=== PATIENT | female | born 1990 | race Caucasian/White ===

== ENCOUNTER → 2017-08-01 10:44 | Outpatient (REF) | payer OTHER, SELFPAY ==
[2017-08-01 13:44] LABS: Basophils # 0.1 K/mm3 (0-0.2); Basophils % 0.7 % (0.1-2.0); Eosinophils # 0.1 K/mm3 (0.0-0.4); Eosinophils % 1.7 % (0.1-12.0); Hemoglobin 13.1 g/dL (12.2-16.2); Lymphocytes # 2.9 K/mm3 (0.7-4.5); Lymphocytes % 36.7 K/mm3 (10-50); Mean Corpuscular HGB Conc 32.6 g/dL (31.8-35.4); Mean Corpuscular Hemoglobin 31.1 pg (27.0-31.2); Mean Corpuscular Volume 95.4 fl (81-99); Mean Platelet Volume 9.2 fl (7.4-10.4); Monocytes # 0.4 K/mm3 (0.1-1.0); Monocytes % 4.9 % (1.7-9.3); Neutrophils # 4.5 K/mm3 (1.8-7.8); Neutrophils % 55.9 % (37.0-80.0); Platelet Count 247 K/mm3 (142-424); Red Cell Distribution Width 12.6 % (11.5-17.5)
[2017-08-01 14:01] LABS: Free T4 (Free Thyroxine) 0.96 ng/dl (0.76-1.46); Thyroid Stimulating Hormone 1.52 uIU/ml (0.358-3.740)
[2017-08-01 14:05] LABS: Amphetamine/Metha Screen,Urine Negative ng/mL (<1000); Barbiturates Screen,Urine Negative ng/mL (<200); Benzodiazepines Screen,Urine Negative ng/mL (200); Cannabinoid Screen,Urine Negative ng/mL (<50); Cocaine Screen,Urine Negative ng/g (<300); Methadone Screen,Urine Negative ng/mL (<300); Opiate Screen,Urine Negative ng/mL (<300); Phencyclidine Screen,Urine Negative ng/mL (<25)
[2017-08-01 14:50] LABS: Erythrocyte Sedimentation Rate 7 mm/hr (0-20)
[2017-08-03 06:28] LABS: Prolactin 10.1 ng/mL (4.8-23.3); Vitamin D 25 Hydroxy 53.2 ng/mL (30.0-100.0)
== END ==
LOC: LAB 10:44
PROVIDERS: Visit Provider Emergency Medicine
DX: R53.83 Other fatigue (principal); Z79.899 Other long term (current) drug therapy
CPT/HCPCS: 80305; 82652; 84146; 84439; 84443; 85025; 85651

== ENCOUNTER → 2017-09-11 13:16 | Outpatient (CLI) | payer OTHER, SELFPAY ==
--- NOTE | 2017-09-11 13:19 | US_ITS ---
US breast RT complete COMPARISON: Ultrasound left breast same date HISTORY: Bilateral breast pain, galactorrhea TECHNIQUE: Ultrasound scanning all 4 quadrants FINDINGS: There is diffuse heterogenic echogenicity throughout the breast consistent with prominent fibrocystic change. There is a focal scar 10:00 position near the nipple right breast at the site of previous biopsy right or excision. There are normal-appearing nodes in the axilla. IMPRESSION: Diffuse heterogenic echogenicity consistent with prominent fibrocystic changes not unusual for this age, there is no suspicious cystic or solid mass
--- NOTE | 2017-09-11 13:19 | MM_ITS ---
MM Dig mamm BI DX w/CAD COMPARISON: None, this is baseline INDICATION: Patient was adopted Does not know family history patient complaining of lumps in both breasts TECHNIQUE: Standard MLO and CC views were obtained along with exaggerated cc views. FINDINGS: There is a markedly dense and heterogenic parenchymal pattern lessening the sensitivity of mammography. The findings are fairly symmetrical bilaterally. There is no suspicious lesion and there are no suspicious microcalcifications. IMPRESSION: Dense and heterogenic parenchymal pattern with no suspicious lesion seen recommend yearly screening mammography at the age of 33 BI-RADS Category: 1 Negative RECOMMENDED FOLLOW-UP: 1YR - 1 YEAR FOLLOW-UP beginning at the age of 33 (A letter has been sent to the patient regarding results of the study.)
--- NOTE | 2017-09-11 13:19 | US_ITS ---
US breast LT complete COMPARISON: Ultrasound right breast same date HISTORY: Lateral breast pain and galactorrhea TECHNIQUE: Ultrasound all 4 quadrants FINDINGS: There is diffuse heterogenic echogenicity throughout the breast consistent with prominent fibrocystic change. There is no abnormal cystic or solid mass and there is no definite ductal hyperplasia. There are normal-appearing nodes in the axilla. IMPRESSION: Prominent heterogenic echogenicity consistent with fibrocystic change, no suspicious cystic or solid lesions seen
== END ==
PROVIDERS: PCP Emergency Medicine; Visit Provider Physician Assistant
DX: N64.4 Mastodynia (principal); N64.3 Galactorrhea not associated with childbirth; N63.0 Unspecified lump in unspecified breast
CPT/HCPCS: 76641; 77066

== ENCOUNTER → 2018-01-01 08:32 | Outpatient (CLI) | payer OTHER, SELFPAY ==
--- NOTE | 2018-01-01 08:36 | MR_ITS ---
MR abdomen wo/w con INDICATION: Right lower quadrant pain, constant right lower quadrant pain. Burning sensation during menstruation, tenderness in the right lower quadrant. Abnormal CT scan of 06/25/2018 showing enhancement of the right rectus abdominis muscle inferiorly. ITS.REASON: attention rectus abdominis ORDERING PHYSICIAN: JOSEPH Horner PATIENT AGE: 27 years COMPARISON: 06/25/2018 TECHNIQUE: Routine multiplanar multiecho sequences were performed without and with contrast FINDINGS: The liver, gallbladder, spleen, kidneys, and adrenal glands have an unremarkable appearance. No pancreatic mass or ductal dilatation is evident. The visualized portion of the anterior abdominal wall/rectus abdominis muscle has an unremarkable appearance. The exam however did not include the pelvis. The lower aspect of the rectus abdominis muscle was the area of interest on the CT scan of 06/25/2017 and is not covered by this exam. One would need to perform an MRI of the pelvis to include this region. The [id number] cannot be widened to include the abdomen and the pelvic region and maintain image quality.. IMPRESSION: 1. Negative MRI of the abdomen. 2. The area of interest on the CT scan of the right rectus abdominis is at least 8 cm below the level of the umbilicus and is not included on the MRI of the abdomen.
== END ==
PROVIDERS: PCP Physician Assistant; Visit Provider Physician Assistant
DX: R10.31 Right lower quadrant pain (principal); R10.9 Unspecified abdominal pain
CPT/HCPCS: 74183; A9576

== ENCOUNTER → 2018-01-05 14:07 | Outpatient (CLI) | payer OTHER, SELFPAY ==
--- NOTE | 2018-01-05 14:10 | US_ITS ---
US transvaginal HISTORY: Right lower quadrant pain ITS.REASON: rlq pain ORDERING PHYSICIAN: JOSEPH Horner PATIENT AGE: 27 years Comparison: None Last menstrual period 12/11/2017 FINDINGS: The uterus is bulky and 10 x 4.5 x 5.7 cm. Combined endometrial thickness is 9 mm. No uterine mass is evident. The left ovary is 3.9 x 2.8 cm and contains small follicles as well as probable collapsed cyst at 12 mm. The right ovary is 4.7 x 3.5 cm containing follicles and a 2.5 follicular cyst. Cul-de-sac fluid is not identified. There is bilateral ovarian blood flow. IMPRESSION: 1. Bulky uterus. 2. 2.5 cm right ovarian cyst. Possible partially collapsed left ovarian cyst
== END ==
PROVIDERS: PCP Physician Assistant; Visit Provider Physician Assistant
DX: N92.1 Excessive and frequent menstruation with irregular cycle (principal); R10.2 Pelvic and perineal pain; R10.31 Right lower quadrant pain
CPT/HCPCS: 76830

== ENCOUNTER → 2018-01-10 10:40 | Outpatient (CLI) | payer OTHER, SELFPAY ==
--- NOTE | 2018-01-10 10:43 | MR_ITS ---
MR pelvis wo/w con HISTORY: Right lower quadrant pain, abdominal wall mass of the right rectus abdominis ITS.REASON: right rectus abdominous musculature ORDERING PHYSICIAN: JOSEPH Horner PATIENT AGE: 27 years Comparison: 06/25/2018 TECHNIQUE: Standard multiplanar multiecho sequences are performed without and with gadolinium enhancement. FINDINGS: There is an oval area of decreased T1 signal intensity involving the anterior aspect of the right rectus abdominis muscle measuring 2.5 x 1.4 x 2.7 cm. This shows some slight heterogeneous increased T2 signal. This is nonspecific CT and could represent an area of endometriosis or other tumor or tumor-like conditions and does not appear significantly changed.. This is nearly 10 cm below the umbilicus and toward the right. Does the patient has a section scar in this region? Incidental note is made of a 2.5 x 2 cm right ovarian cyst. Multiple small left ovarian follicles are present. IMPRESSION: 1. Ill-defined heterogeneous signal intensity of the right rectus abdominis slightly hypointense on T1, slightly hyperintense on T2 without significant contrast enhancement. This is nonspecific. Scar endometriosis is a consideration. Please correlate with clinical findings. This does not appear significantly changed from 06/25/2017. Other tumor or tumor-like conditions not excluded. 2. 2 cm right ovarian cyst IMPRESSION:
--- NOTE | 2018-01-10 12:00 | HMH.ITSHM ---
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 []LEXAPRO CLONAZEPAM IRON
== END ==
PROVIDERS: PCP Physician Assistant; Visit Provider Physician Assistant
DX: R10.31 Right lower quadrant pain (principal); R10.2 Pelvic and perineal pain; N92.1 Excessive and frequent menstruation with irregular cycle
CPT/HCPCS: 72197; A9576

== ENCOUNTER 2023-07-12 16:14 | Emergency (ER) | payer OTHER, SELFPAY ==
[2023-07-12 16:15] VITALS: BP 135/89; PULSE 70; RESP 18; TEMP 36.6; O2SAT 99; BMI 20.8
[2023-07-12 16:30] VITALS: BP 121/91; PULSE 73; O2SAT 96
--- NOTE | 2023-07-12 16:36 | CT_ITS ---
PROCEDURE INFORMATION: Exam: CT Abdomen And Pelvis With Contrast Exam date and time: 07/12/2023 5:03 PM Age: 32 years old Clinical indication: Abdominal pain; Prior surgery; Surgery date: 6+ months; Surgery type: Tubal; Additional info: Severe lower abd pain, reports h/o hernia + cancer TECHNIQUE: Imaging protocol: Computed tomography of the abdomen and pelvis with contrast. Radiation optimization: All CT scans at this facility use at least one of these dose optimization techniques: automated exposure control; mA and/or kV adjustment per patient size (includes targeted exams where dose is matched to clinical indication); or iterative reconstruction. Contrast material: ISOVUE; Contrast volume: 70 ml; Contrast route: IV; COMPARISON: 1. PELWW MR pelvis wo/w con 01/10/2018 11:19 AM 2. ABDWW MR abdomen wo/w con 01/01/2018 9:[address] ABD/PELVIS WITH IV CONTRAST 06/25/2017 11:08 PM FINDINGS: Limitations: Evaluation of intra-abdominal contents is limited by a paucity of intraperitoneal fat. Liver: Normal. Gallbladder and bile ducts: No acute process. Pancreas: Normal. Spleen: Normal. Adrenal glands: The adrenal glands appear normal. Kidneys and ureters: There are no soft tissue renal masses or hydronephrosis. Stomach and bowel: There is large volume stool throughout the colon. Appendix: No evidence of appendicitis. Intraperitoneal space: Unremarkable. Vasculature: The abdominal aorta and its major branches appear normal without evidence of aneurysm or stenosis. There are pelvic phleboliths. Lymph nodes: No lymphadenopathy. Urinary bladder: Unremarkable as visualized. Reproductive: There is a tampon in the vagina. 2.3 cm right adnexal cyst, possibly dominant follicle. Bones/joints: The visualized osseous structures of the abdomen and pelvis appear normal for patient age. Soft tissues: Unremarkable. IMPRESSION: 1. No acute inflammatory or obstructive process is identified. Incidental findings are described within the findings section. 2. Somewhat atypical position of tampon, correlate for retention.
--- NOTE | 2023-07-12 16:39 | ED_ITS ---
Discharge Plan Disposition Patient Disposition: Home, Self-Care Condition: Good Prescriptions Prescriptions: New ketorolac 10 mg tablet 10 mg PO Q8H PRN (Reason: pain) 1 Days Qty: 20 0RF methocarbamol 750 mg tablet 750 mg PO Q8H PRN (Reason: pain) Qty: 20 0RF lidocaine [Lidoderm] 5 % adhesive patch,medicated 1 patch topical DAILY Qty: 15 0RF Rx Instructions: leave on most painful area for up to 12 hrs No Action vitamin E (dl, acetate) 1,000 unit capsule 1,000 unit PO DAILY Qty: 90 0RF triazolam 0.125 mg tablet 0.125 mg PO ONCE Qty: 1 0RF Rx Instructions: Take 30 minutes prior to procedure escitalopram oxalate [Lexapro] 10 mg tablet 10 mg PO DAILY Qty: 30 2RF clonazepam 1 mg tablet 1 mg PO BID Qty: 60 2RF Referrals Follow up/Referrals: Rosangela Young DO [Staff Physician] - See instructions Nancy Sharp PA [Primary Care Provider] - See instructions Activity Restrictions/Add. Instructions Additional Instructions/Restrictions: You were evaluated in the emergency department today. At this time, I feel that your symptoms are likely related to muscle strain of your abdomen. 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 Robaxin is a muscle relaxer and Toradol as an anti-inflammatory. You may also take Tylenol in addition to these medications every 4-6 hours as needed for pain. I also sent in a prescription for lidocaine patches. Follow-up closely with your primary care provider as well as with [facility] given your ovarian cyst. Return to the emergency department for new or worsening symptoms. Clinical Impressions Clinical Impression: Abdominal muscle strain, Cyst of right ovary Instructions Patient Instructions: DI for Acute Abdominal Pain Discharge ED Provider: Fawn Moore General Adult HPI General Chief complaint: Abdominal Pain Stated complaint: abd , groin pain,, poss hernia Time Seen by Provider: 07/12/23 16:22 Mode of Arrival: Ambulatory Source of Information: Patient Limitations: No Limitations Description of Symptoms (Recalled from ER Triage Doc. by RN): Patient reports right lower quadarant abdominal pain that started yesterday after lifting some pipes. States she has a know hernia in that area and she feels like it is going to pop out. States that the pain radiates into her vagina. History of Present Illness HPI narrative: This patient is a 32-year-old female who reports a history of multiple C- sections, tubal ligation, breast mass and menorrhagia presenting to the emergency department for evaluation with concern for severe right lower quadrant abdominal pain that started yesterday after lifting some very heavy pipes. She was fine prior to heavy lifting. She still having bowel movements, passing gas, and urinating normally, but the pain is severe and nothing seems to make it better or worse. She has tried multiple medications at home prior to arrival. She states she notes that she has a hernia down there. She is currently on her period. Related Data Previous Rx's Medication Instructions Recorded vitamin E (dl, acetate) 450 mg 1,000 unit PO DAILY #90 caps 09/14/17 (1,000 unit) capsule clonazepam 1 mg tablet 1 mg PO BID #60 tabs 12/19/17 escitalopram oxalate 10 mg tablet 10 mg PO DAILY #30 tabs 12/19/17 (Lexapro) triazolam 0.125 mg tablet 0.125 mg PO ONCE #1 tab 01/09/18 ketorolac 10 mg tablet 10 mg PO Q8H PRN pain 1 day #20 07/12/23 tabs lidocaine 5 % topical patch 1 patch topical DAILY #15 ea 07/12/23 (Lidoderm) methocarbamol 750 mg tablet 750 mg PO Q8H PRN pain #20 tabs 07/12/23 Allergies Allergy/AdvReac Type Severity Reaction Status Date / Time aripiprazole [From Abilify] Allergy Severe Anaphylaxis Verified 12/19/17 13:09 hydroxyzine Allergy Intermediate Anaphylaxis Verified 12/19/17 13:[address] [facility] Disclaimer: The information contained in this section may have been updated after the patient was seen, as this information can be updated by other users. Medical History Chronic pain of breast Depression Breast pain Sciatica Right lower quadrant pain Menometrorrhagia Pelvic pain Breast mass in female Galactorrhea Anxiety Social History Smoking Status: Unknown if ever smoked alcohol intake: current alcohol intake frequency: holidays/special occasions only substance use type: marijuana current occupational status: unemployed Travel in the last 8 weeks: None household members: family housing: house ROS Obtained: Yes All systems reviewed & no additional complaints except as documented Physical Exam General General appearance: alert Comment: Uncomfortable appearing Head Head exam: atraumatic and normocephalic Eye Eye exam: Present normal appearance, PERRL and EOMI ENT ENT exam: Present normal exam, normal oropharynx, mucous membranes moist and normal external ear exam Neck Neck exam: Present normal inspection, full ROM and trachea midline; Absent tenderness Chest Chest inspection: Present normal inspection and symmetric chest wall rise; Absent tenderness Respiratory Respiratory exam: Present normal lung sounds bilaterally; Absent respiratory distress, wheezes, stridor or accessory muscle use Cardiovascular Cardiovascular exam: Present regular rate and normal rhythm Abdominal Exam Abdominal exam: Present tenderness (Generalized, worse in the lower abdomen) and guarding; Absent distention, rebound or rigidity Comment: Pain out of proportion to exam Extremities Exam Extremities exam: Present normal inspection, full ROM and normal capillary refill; Absent tenderness or edema Back Exam Back exam: Present normal inspection and full ROM; Absent tenderness Neurological Exam Neurological exam: Present alert, oriented X3, CN II-XII intact and normal gait; Absent motor sensory deficit Psychiatric Psychiatric exam: Present normal affect and normal mood Skin Skin exam: Present warm and dry Medical Decision Making Medical Records Medical records reviewed: Yes I reviewed the patient's medical records. Adriel Inquiry Pt receiving controlled substance: No Vital Signs: 07/12/23 16:15 07/12/23 16:30 07/12/23 19:00 Temperature 97.9 F Temperature Source Oral Pulse Rate 73 63 Pulse Rate [Radial] 70 Respiratory Rate 18 Blood Pressure 121/91 H Blood Pressure [Right Arm] 135/89 Blood Pressure Mean Blood Pressure Mean [Right Arm] 104 Blood Pressure Source Blood Pressure Source [Right Arm] Automatic Cuff Blood Pressure Position Blood Pressure Position [Right Arm] Sitting 02 Sat by Pulse Oximetry 99 96 95 Oxygen Delivery Method Room Air Room Air 07/12/23 19:30 07/12/23 20:00 07/12/23 20:35 Temperature 98.0 F Temperature Source Oral Pulse Rate 59 L 55 L 75 Pulse Rate [Radial] Respiratory Rate 19 Blood Pressure 152/96 H 152/90 H Blood Pressure [Right Arm] Blood Pressure Mean 104 Blood Pressure Mean [Right Arm] Blood Pressure Source Automatic Cuff Blood Pressure Source [Right Arm] Blood Pressure Position Sitting Blood Pressure Position [Right Arm] 02 Sat by Pulse Oximetry 97 95 Oxygen Delivery Method Room Air Lab Data Lab results reviewed: Yes I reviewed the patient's lab results. Lab Results 07/12/23 16:44: WBC 13.5 H, RBC 4.10 L, Hgb 13.8, Hct 42.4, MCV 103.5 H, MCH 33.7 H, MCHC 32.6, RDW 13.3, Plt Count 256, MPV 8.9, Neut % (Auto) 68.0, Lymph % (Auto) 24.8, [place] % (Auto) 4.6, Eos % (Auto) 1.6, Baso % (Auto) 1.0, Neut # (Auto) 9.2 H, Lymph # (Auto) 3.3, [place] # (Auto) 0.6, Eos # (Auto) 0.2, Baso # (Auto) 0.1, Sodium 139, Potassium 3.8, Chloride 104, Carbon Dioxide 28, Anion Gap 10.8, BUN 10, Creatinine 0.60, Estimated Creat Clear 88, Estimated GFR 114, Est GFR ( Amer) 138, Glucose 97, Lactate 1.2, Calcium 9.6, Total Bilirubin 0.2, AST 24, ALT 20, Alkaline Phosphatase 33 L, Total Protein 7.1, Albumin 4.5, Globulin 2.6, Albumin/Globulin Ratio 1.7, Lipase 48 07/12/23 17:53: Urine Color Yellow, Urine Appearance Clear, Urine pH 5.5, Ur Specific [place] 1.020, Urine Protein Negative, Urine Glucose (UA) Negative, Urine Ketones Negative, Urine Blood Negative, Urine Nitrate Negative, Urine Bilirubin Negative, Urine Urobilinogen 0.2, Ur Leukocyte Esterase Negative, Urine RBC Occasional, Urine WBC Occasional, Ur Squamous Epith Cells Occasional, Urine Bacteria 2+ 07/12/23 16:44 07/12/23 16:44 Orders (Tests/Meds): ED MEDICATIONS Discontinued Medications Generic Name Dose Route Start Last Admin Trade Name Thienq PRN Reason Stop Dose Admin Acetaminophen 1,000 mg 07/12/23 16:37 07/12/23 16:56 Acetaminophen 1,000mg/100ml Vial IV 07/12/23 16:38 1,000 mg ONCE ONE Administration Diazepam 5 mg 07/12/23 19:15 07/12/23 19:23 Diazepam 5mg Tablet PO 07/12/23 19:16 5 mg ONCE ONE Administration Hydromorphone HCl 0.5 mg 07/12/23 17:38 07/12/23 17:50 Hydromorphone 2mg/Ml Syringe IV 07/12/23 17:39 0.5 mg ONCE ONE Administration Lactated Ringer's 1,000 mls @ 999 mls/hr 07/12/23 16:37 07/12/23 16:56 Lactated Ringer's 1000 Ml Bag IV 07/12/23 17:37 999 mls/hr .Q1H1M ONE Administration Iopamidol 70 ml 07/12/23 17:11 07/12/23 17:11 Iopamidol-370 (76%);100ml Bottle IV 07/12/23 17:12 70 ml ONCE ONE Administration Ketorolac Tromethamine 15 mg 07/12/23 16:37 07/12/23 16:56 Ketorolac 30mg/Ml Vial IV 07/12/23 16:38 15 mg ONCE ONE Administration Lidocaine 1 each 07/12/23 19:15 07/12/23 19:23 Lidocaine 5% Transdermal Patch TP 07/12/23 19:16 1 each ONCE ONE Administration Metoclopramide HCl 5 mg 07/12/23 17:42 07/12/23 17:49 Metoclopramide Hcl 10mg/2ml Vial IVP 07/12/23 17:43 5 mg ONCE ONE Administration Morphine Sulfate 4 mg 07/12/23 16:37 07/12/23 16:56 Morphine 4mg/Ml Syringe IV 07/12/23 16:38 4 mg ONCE ONE Administration Ondansetron HCl 4 mg 07/12/23 16:37 07/12/23 16:56 Ondansetron 4mg/2ml Vial IV 07/12/23 16:38 4 mg ONCE ONE Administration Sodium Chloride 10 ml 07/12/23 17:11 07/12/23 17:11 Sodium Chloride 0.9% 10ml Syr (Rad Only) IV 07/12/23 17:12 10 ml ONCE ONE Administration ORDERS Category Date Time Status CT abdomen pelvis w con Stat Cat Scan 07/12/23 16:36 Completed US transvaginal Stat Exams 07/12/23 17:38 Completed CBC w/Auto Diff [Complete Blood Count Auto Diff] Stat Lab 07/12/23 16:44 Completed CMP [Comprehensive Metabolic Panel] Stat Lab 07/12/23 16:44 Completed Lactic Acid Stat Lab 07/12/23 16:44 Completed Lipase Stat Lab 07/12/23 16:44 Completed UA [Urinalysis and Microscopic] Stat Lab 07/12/23 17:53 Completed Urine Culture Stat Micro 07/12/23 17:53 Received Medical Decision Narrative: In summary, this patient is a 32-year-old female presenting to the Emergency Department for evaluation of severe abdominal pain. Differential diagnoses considered include but are not limited to musculoskeletal strain/sprain, incarcerated hernia, strangulated hernia, colitis, cystitis, ovarian cyst, ovarian torsion, appendicitis. Ruling out the most morbid conditions drove assessment. On exam, the patient is uncomfortable appearing with generalized abdominal tenderness. Pain is out of proportion to exam. Workup included CBC, CMP, lipase, lactic acid, urinalysis, and CT abdomen pelvis with IV contrast. She is given a bolus of IV fluids as well as IV Toradol, acetaminophen, Zofran, and morphine for symptomatic improvement. I independently interpreted CT scan prior to the radiologist read and noted right ovarian cyst without other acutely concerning abnormalities. Please see their read for final interpretation. Labs were obtained that demonstrated mild leukocytosis without other acutely concerning abnormalities. On reassessment, patient had minimal improvement after administration of medications above. She was given IV Dilaudid with continued minimal improvement. Given ovarian cyst, transvaginal ultrasound was ordered to assess for flow to rule out torsion. I independently interpreted this prior to radiology read and noted that she had the right ovarian cyst with good blood flow to right ovary not concerning for torsion. On exam, she clearly begins to state that this is much worse with movement and changing the positions, and it goes from her back to her right lower pelvis. I feel this is likely musculoskeletal strain/sprain. She was given oral Valium and a topical Lidoderm patch, which did significantly improve her pain and she is feeling much better. At this time, patient was deemed to be appropriate for discharge home with instructions for supportive management, close gynecology follow-up, and very strict return precautions. She was given prescriptions for Robaxin, Lidoderm patch, and Toradol. She was discharged after all questions were answered. Critical Care Critical Care Time Critical Care Time: No
[2023-07-12 16:56] LABS: Basophils # 0.1 K/mm3 (0-0.2); Eosinophils # 0.2 K/mm3 (0.0-0.4); Eosinophils % 1.6 % (0.1-12.0); Hematocrit 42.4 % (37.0-47.0); Hemoglobin 13.8 g/dL (12.2-16.2); Lymphocytes # 3.3 K/mm3 (0.7-4.5); Lymphocytes % 24.8 % (10-50); Mean Corpuscular HGB Conc 32.6 g/dL (31.8-35.4); Mean Corpuscular Hemoglobin 33.7 pg (27.0-31.2); Mean Corpuscular Volume 103.5 fl (81-99); Mean Platelet Volume 8.9 fl (7.4-10.4); Monocytes # 0.6 K/mm3 (0.1-1.0); Monocytes % 4.6 % (1.7-9.3); Neutrophils # 9.2 K/mm3 (1.8-7.8); Platelet Count 256 K/mm3 (142-424); Red Cell Distribution Width 13.3 % (11.5-17.5); White Blood Count 13.5 K/mm3 (4.8-10.8)
[2023-07-12] MEDS: MORPHINE 4MG/ML SYRINGE 4 MG IV (16:56)
[2023-07-12] MEDS: KETOROLAC 30MG/ML VIAL 15 MG IV (16:56)
[2023-07-12] MEDS: LACTATED RINGERS 1000ML 1,000 ML 999 ML IV (16:56)
[2023-07-12] MEDS: ACETAMINOPHEN 1,000MG/100ML VIAL 1000 MG IV (16:56)
[2023-07-12] MEDS: ONDANSETRON 4MG/2ML VIAL 4 MG IV (16:56)
[2023-07-12 17:03] LABS: Chloride 104 mmol/L (98-107); Potassium 3.8 mmoL/L (3.5-5.1); Sodium 139 mmol/L (136-145)
[2023-07-12 17:05] LABS: Alanine Aminotransferase 20 U/L (12-78); Alkaline Phosphatase 33 U/L (38-126); Anion Gap 10.8 mEq/L (5-15); Aspartate Amino Transferase 24 U/L (14-36); Bilirubin,Total 0.2 mg/dl (0.2-1.3); Blood Urea Nitrogen 10 mg/dl (7-17); Carbon Dioxide 28 mmol/L (22.0-30.0); Creatinine Clearance Estimated 88 mL/min (50-200); Estimated Glomerular Filt Rate 114 ml/min (>60); GFR (African American) 138 ML/MIN (>60)
[2023-07-12 17:06] LABS: Albumin Level 4.5 g/dl (3.5-5.0); Albumin/Globulin Ratio 1.7 (1.1-1.8); Calcium 9.6 mg/dl (8.4-10.2); Globulin 2.6 g/dL (1.3-3.2); Glucose 97 mg/dl (74-100); Lipase 48 U/L (23-300); Total Protein,Serum 7.1 g/dl (6.3-8.2)
[2023-07-12 17:07] LABS: Lactic Acid 1.2 mmol/L (0.7-2.1)
[2023-07-12] MEDS: IOPAMIDOL-370 (76%);100ML BOTTLE 70 ML IV (17:11)
[2023-07-12] MEDS: SODIUM CHLORIDE 0.9% 10ML SYR (RAD ONLY) 10 ML IV (17:11)
--- NOTE | 2023-07-12 17:38 | US_ITS ---
PROCEDURE INFORMATION: Exam: US Pelvis, Transvaginal Exam date and time: 07/12/2023 6:02 PM Age: 32 years old Clinical indication: Pelvic pain; Prior surgery; Surgery date: 6+ months; Surgery type: Csecs; Additional info: R ovarian cyst, R pelvic pain LABS AND CLINICAL REPORTS: Last menstrual period start date: 07/07/2023 TECHNIQUE: Imaging protocol: Real-time transvaginal pelvic ultrasound with image documentation. Transvaginal imaging was used for better evaluation of the endometrium, adnexa, and/or cervix. COMPARISON: CT ABDOMEN PELVIS W CON 07/12/2023 5:03 PM FINDINGS: Uterus: Uterus measures 9.26 cm x 5.83 cm x 4.58 cm. Right ovary/adnexa: Right ovary measures 4.53 cm x 3.57 cm x 2.56 cm. Right ovarian volume is 21.68 mL. There is normal arterial and venous flow to the right ovary. 2.5 cm right ovarian dominant follicle is noted. Left ovary/adnexa: Left ovary measures 3.77 cm x 1.88 cm x 2.38 cm. Left ovarian volume is 8.83 mL. There is normal arterial and venous flow to the left ovary. Intraperitoneal space: No free fluid. Other findings: Changes of prior section. IMPRESSION: 2.5 cm right ovarian dominant follicle. Examination within normal limits.
[2023-07-12] MEDS: METOCLOPRAMIDE HCL 10MG/2ML VIAL 5 MG IVP (17:49)
[2023-07-12] MEDS: HYDROMORPHONE 2MG/ML SYRINGE 0.5 MG IV (17:50)
[2023-07-12 17:57] LABS: Microscopic, Urine URINE MICROSCOPIC (MICROSCOPIC)
[2023-07-12 18:01] LABS: Appearance,Urine CLEAR (Clear); Bilirubin,Urine Negative (Negative); Blood, Urine Negative (Negative); Color,Urine YELLOW (Yellow); Glucose,Urine (UA) Negative (Negative); Ketones,Urine Negative (Negative); Leukocyte Esterase,Urine Negative (Negative); Nitrate,Urine Negative (Negative); PH,Urine 5.5 (5.0-8.5); Protein,Urine Negative (Negative); Urobilinogen,Urine 0.2 EU/dl (0.2)
[2023-07-12 18:17] LABS: Bacteria,Urine 2+ /lpf; RBC,Urine Occasional #/hpf (0-3); Squamous Epithelial Cell,Urine Occasional #/hpf (0-5); WBC,Urine Occasional #/hpf (0-3)
--- NOTE | 2023-07-12 18:54 | PC.NURSE ---
received report from lorena alonzorn
[2023-07-12 19:00] VITALS: PULSE 63; O2SAT 95
[2023-07-12] MEDS: diazePAM 5MG TABLET 5 MG PO (19:23)
[2023-07-12] MEDS: LIDOCAINE 5% TRANSDERMAL PATCH 1 EACH TP (19:23)
[2023-07-12 19:30] VITALS: PULSE 59; O2SAT 97
[2023-07-12 20:00] VITALS: BP 152/96; PULSE 55; O2SAT 95
[2023-07-12 20:35] VITALS: BP 152/90; PULSE 75; RESP 19; TEMP 36.7; O2SAT 98
[2023-07-14 21:08] LABS: Neisseria gonorrhoeae, NAA Negative (Negative)
--- NOTE | 2023-07-15 05:47 | PC.NURSE ---
received report that there is nothing to do from Briana Galvan RN following presentation to MD Otoniel
--- NOTE | 2023-07-15 08:30 | PC.NURSE ---
discussed urine culture results with , script for macrobid sent over to [facility], pt aware.
== END 2023-07-12 20:44 | disposition home or self-care (01) ==
PROVIDERS: Emergency Provider Emergency Medicine; PCP Physician Assistant
DX: R10.31 Right lower quadrant pain (principal); S39.011A Strain of muscle, fascia and tendon of abdomen, initial encounter; N83.201 Unspecified ovarian cyst, right side; B96.29 Other Escherichia coli [E. coli] as the cause of diseases classified elsewhere; X50.0XXA Overexertion from strenuous movement or load, initial encounter
CPT/HCPCS: 74177; 76830; 80053; 81001; 83605; 83690; 85025; 87086; 87088; 87186; 87491; 87591; 96361; 96374; 96375; 99285; J0131; J2405; Q9967

== ENCOUNTER 2024-05-20 23:13 | Emergency (ER) | payer OTHER, SELFPAY ==
[2024-05-20 23:01] VITALS: BP 101/66; PULSE 71; O2SAT 98
--- NOTE | 2024-05-20 23:03 | ECG_ITS ---
APPROVED REPORT Exam: Resting ECG HR:79 bpm ECG Measurements Heart Rate 79 AXES NE 137 P 75 QRSd 91 QRS 203 QT 369 T 70 QTc 403 Conclusion SINUS RHYTHM WITH MARKED SINUS ARRHYTHMIA RIGHT AXIS DEVIATION [QRS AXIS > 100] LOW QRS VOLTAGE IN EXTREMITY LEADS [QRS DEFLECTION < 0.5 mV IN LIMB LEADS] ABNORMAL ECG Electronically signed by : CHARO MEDRANO, 05/21/2024 00:16:19
--- NOTE | 2024-05-20 23:07 | XR_ITS ---
PROCEDURE INFORMATION: Exam: XR Chest Exam date and time: 05/20/2024 11:36 PM Age: 33 years old Clinical indication: Pain; Chest pressure; Additional info: Central chest pain TECHNIQUE: Imaging protocol: Radiologic exam of the chest. Views: 2 views. Total images: 2 COMPARISON: CT ABDOMEN PELVIS W CON 07/12/2023 5:03 PM FINDINGS: Lungs: Nonspecific hyperinflation. No consolidation. No pulmonary vascular congestion or edema. Pleural spaces: Unremarkable. No pleural effusion. No pneumothorax. Heart/Mediastinum: Unremarkable. No cardiomegaly. No mediastinal widening or hilar enlargement. Bones/joints: Unremarkable. IMPRESSION: 1. No radiographically acute cardiopulmonary process. 2. Nonspecific hyperinflation.
[2024-05-20 23:10] VITALS: BP 101/66; PULSE 74; RESP 15; TEMP 37.3; O2SAT 96; BMI 21.2
[2024-05-20 23:14] LABS: Basophils # 0.1 K/mm3 (0-0.2); Basophils % 0.4 % (0.1-2.0); Eosinophils # 0.1 K/mm3 (0.0-0.4); Eosinophils % 0.5 % (0.1-12.0); Hematocrit 38.6 % (37.0-47.0); Hemoglobin 13.6 g/dL (12.2-16.2); Lymphocytes # 4.6 K/mm3 (0.7-4.5); Lymphocytes % 22.3 % (10-50); MANUAL DIFFERENTIAL MANUAL DIFFERENTIAL (MANUAL DIFF); Mean Corpuscular HGB Conc 35.2 g/dL (31.8-35.4); Mean Corpuscular Hemoglobin 33.3 pg (27.0-31.2); Mean Corpuscular Volume 94.6 fl (81-99); Mean Platelet Volume 10.8 fl (7.4-10.4); Monocytes # 1.1 K/mm3 (0.1-1.0); Monocytes % 5.5 % (1.7-9.3); Neutrophils # 14.6 K/mm3 (1.8-7.8); Neutrophils % 70.9 % (37.0-80.0); Platelet Count 288 K/mm3 (142-424); Red Blood Count 4.08 M/mm3 (4.20-5.40); Red Cell Distribution Width 12.4 % (11.5-17.5); White Blood Count 20.5 K/mm3 (4.8-10.8)
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
[2024-05-20 23:21] LABS: Albumin Level 5.1 g/dl (3.5-5.0); Chloride 101 mmol/L (98-107); Potassium 3.3 mmoL/L (3.5-5.1); Sodium 135 mmol/L (136-145)
[2024-05-20] MEDS: LORazepam 0.5MG TABLET 0.5 MG PO (23:23)
[2024-05-20 23:24] LABS: Alanine Aminotransferase 22 U/L (12-78); Albumin/Globulin Ratio 2.1 (1.1-1.8); Alkaline Phosphatase 45 U/L (38-126); Anion Gap 2.3 mEq/L (5-15); Aspartate Amino Transferase 26 U/L (14-36); Bilirubin,Total 0.4 mg/dl (0.2-1.3); Blood Urea Nitrogen 7 mg/dl (7-17); Carbon Dioxide 35 mmol/L (22.0-30.0); Estimated Glomerular Filt Rate 114 ml/min (>60); GFR (African American) 138 ML/MIN (>60); Globulin 2.4 g/dL (1.3-3.2); Glucose 117 mg/dl (74-100); Total Protein,Serum 7.5 g/dl (6.3-8.2)
[2024-05-20 23:25] LABS: Calcium 9.8 mg/dl (8.4-10.2)
[2024-05-20 23:30] VITALS: BP 122/63; PULSE 82; RESP 12; O2SAT 96
[2024-05-20 23:33] LABS: NT Pro Brain Natriuretic Pep. 162 pg/mL (0-125)
[2024-05-20 23:38] LABS: HCG Qualitative, Serum Negative (Negative)
[2024-05-20 23:51] LABS: Lactic Acid 0.9 mmol/L (0.7-2.1)
[2024-05-20 23:54] LABS: Troponin I < 0.01 ng/ml (0.00-0.034)
[2024-05-21] VITALS: BP 119/95; PULSE 76; RESP 15; O2SAT 97
[2024-05-21 00:03] LABS: Microscopic, Urine URINE MICROSCOPIC (MICROSCOPIC)
[2024-05-21 00:33] LABS: HIV Combo NEGATIVE (Negative)
[2024-05-21 00:41] LABS: Hepatitis C Ab Qual. W/ RFX NEGATIVE (Negative)
[2024-05-21 00:43] LABS: Lymphocytes % 20 % (10-50); Monocytes % 7 % (2-9); Neutrophils % 72 % (42-76); Platelet Estimate Normal; Stomatocytes 1+; Total Cells Counted 100
[2024-05-21] MEDS: ONDANSETRON 4MG/2ML VIAL 4 MG IV (00:43)
[2024-05-21 00:49] LABS: Appearance,Urine CLEAR (Clear); Bilirubin,Urine Negative (Negative); Blood, Urine Negative (Negative); Color,Urine YELLOW (Yellow); Glucose,Urine (UA) Negative (Negative); Ketones,Urine Negative (Negative); Leukocyte Esterase,Urine Negative (Negative); Nitrate,Urine Negative (Negative); Protein,Urine Negative (Negative); Urobilinogen,Urine 0.2 EU/dl (0.2)
[2024-05-21 00:54] LABS: INR 1.05 (0.9-1.1); Prothrombin Time 11.7 seconds (10.1-12.5)
[2024-05-21 01:00] VITALS: BP 100/66; PULSE 61; RESP 14; O2SAT 96
[2024-05-21 01:12] LABS: Bacteria,Urine 1+ /lpf; Trichomonas,Urine 1+ /lpf
--- NOTE | 2024-05-21 01:43 | PC.NURSE ---
pt refusing nasal swab with ed provider at the bedside.
[2024-05-21 02:00] VITALS: BP 94/72; PULSE 65; RESP 15; O2SAT 96
--- NOTE | 2024-05-21 02:04 | PC.NURSE ---
repeat trop sent to the lab at this time.
--- NOTE | 2024-05-21 02:23 | PC.NURSE ---
pt signed out AMA for personal reasons . Staff apologized for wait time on 2nd troponin, pt states its not that . Pt demands IV be taken out. AMA form signed. pt educated on risks of leaving the hospital. pt verbalizes understanding.
[2024-05-21 02:26] VITALS: BP 94/72; PULSE 64; RESP 18; TEMP 37.3; O2SAT 97
--- NOTE | 2024-05-21 02:31 | PC.NURSE ---
0040 Pt c/o nausea. MD Nam notified. pt given zofran per MAR S/O report he has not eaten recently and asking for a snack. he was given chicken salad sandwich, bbq chips, rice krispie, and pepsi.
[2024-05-21 02:45] LABS: Troponin I < 0.01 ng/ml (0.00-0.034)
== END 2024-05-21 02:37 | disposition left against medical advice (07) ==
PROVIDERS: Emergency Medicine; Emergency Provider Emergency Medicine
DX: R07.9 Chest pain, unspecified (principal); R68.84 Jaw pain; D72.829 Elevated white blood cell count, unspecified; R11.0 Nausea; R05.9 Cough, unspecified; F32.A Depression, unspecified; F41.0 Panic disorder [episodic paroxysmal anxiety]; F17.210 Nicotine dependence, cigarettes, uncomplicated; N83.209 Unspecified ovarian cyst, unspecified side; N92.1 Excessive and frequent menstruation with irregular cycle; O92.6 Galactorrhea; F12.90 Cannabis use, unspecified, uncomplicated; K43.9 Ventral hernia without obstruction or gangrene; Z53.29 Procedure and treatment not carried out because of patient's decision for other reasons; Z79.899 Other long term (current) drug therapy; Z87.898 Personal history of other specified conditions; Z73.3 Stress, not elsewhere classified
CPT/HCPCS: 71046; 80053; 81001; 83605; 83880; 84484; 84703; 85007; 85025; 85027; 85610; 86803; 87040; 87389; 93005; 96365; 96374; 99284; J2405